=== PATIENT | male | born 1945 | race Caucasian/White ===

== ENCOUNTER 2016-12-25 07:31 | Outpatient (CLI) | payer MEDICARE, OTHER ==
[2016-12-25 12:19] LABS: BILIRUBIN,URINE NEGATIVE (NEGATIVE); PH,URINE 5.5 PH (5.0-7.5)
[2016-12-25 12:45] LABS: WBC,URINE 0-3 /HPF (0-3)
[2016-12-25 12:54] LABS: HEMOGLOBIN A1C 0.56 g/dL
[2016-12-25 12:55] LABS: ALBUMIN/GLOBULIN RATIO 1.4 (1.0-2.2); BILIRUBIN,TOTAL 0.4 mg/dL (0.2-1.0); BUN - BLOOD UREA NITROGEN 21 mg/dL (6-20); CALCIUM 8.9 mg/dL (8.5-10.3); CARBON DIOXIDE - CO2 25 mmol/L (21-32); CHLORIDE 107 mmol/L (101-111); CHOL/HDL RATIO 3.9 (<5.0); CHOLESTEROL 195 mg/dL; CREATININE 1.1 mg/dL (0.6-1.2); GFR - MDRD 66 (>89); GLUCOSE 120 mg/dL (70-100); HDL CHOLESTEROL 50 mg/dL; LDL/HDL RATIO 2.2 (<3.6); POTASSIUM 4.1 mmol/L (3.5-5.0); SODIUM 139 mmol/L (135-145); TOTAL PROTEIN 7.3 g/dL (6.7-8.2); TRIGLYCERIDES 179 mg/dL; VLDL CHOLESTEROL 36 mg/dL
== END 2016-12-25 07:32 | disposition home or self-care (01) ==
LOC: LAB.F 07:31
PROVIDERS: ATTEND Family Medicine
DX: M10.9 Gout, unspecified (principal); R73.01 Impaired fasting glucose; E78.5 Hyperlipidemia, unspecified; I10 Essential (primary) hypertension
CPT/HCPCS: 36415; 80053; 80061; 81001; 83036; 84550

== ENCOUNTER 2017-01-10 08:02 | Outpatient (CLI) | payer MEDICARE, OTHER | END 2017-01-10 08:03 | disposition home or self-care (01) | LOC: DI 08:02 | PROVIDERS: ATTEND Family Medicine | DX: I35.0 Nonrheumatic aortic (valve) stenosis (principal) | CPT/HCPCS: 93306 ==

== ENCOUNTER 2017-08-30 07:37 | Outpatient (CLI) | payer MEDICARE, OTHER ==
[2017-08-30 10:25] LABS: BILIRUBIN,URINE NEGATIVE (NEGATIVE); GLUCOSE, URINE (UA) NEGATIVE (NEGATIVE); KETONES,URINE (UA) NEGATIVE (NEGATIVE); LEUKOCYTE ESTERASE, URINE NEGATIVE (NEGATIVE); NITRITE,URINE NEGATIVE (NEGATIVE); OCCULT BLOOD,URINE NEGATIVE (NEGATIVE); PROTEIN,URINE NEGATIVE (NEGATIVE); UROBILINOGEN,URINE 0.2 (NORMAL) E.U./dL (NORMAL)
[2017-08-30 10:29] LABS: BACTERIA,URINE None Seen /HPF (None Seen); CLARITY,URINE CLEAR (CLEAR); RBC,URINE 0-5 /HPF (0-5); SQUAMOUS EPITHELIAL CELL,UR RARE Squamous (<= Few)
[2017-08-30 10:43] LABS: ALBUMIN 4.8 g/dL (3.2-5.5); ALBUMIN/GLOBULIN RATIO 1.6 (1.0-2.2); ALKALINE PHOSPHATASE 45 IU/L (42-121); ALT ALANINE AMINOTRANSFERASE 39 IU/L (10-60); AST ASPARTATE AMINOTRANSFERASE 31 IU/L (10-42); BILIRUBIN,TOTAL 0.8 mg/dL (0.2-1.0); BUN - BLOOD UREA NITROGEN 19 mg/dL (6-20); CALCIUM 9.2 mg/dL (8.5-10.3); CARBON DIOXIDE - CO2 26 mmol/L (21-32); CHLORIDE 102 mmol/L (101-111); CHOLESTEROL 201 mg/dL; CREATININE 1.1 mg/dL (0.6-1.2); GFR - MDRD 66 (>89); GLUCOSE 114 mg/dL (70-100); HDL CHOLESTEROL 53 mg/dL; LDL CHOLESTEROL,CALCULATED 119 mg/dL; SODIUM 138 mmol/L (135-145); TOTAL PROTEIN 7.8 g/dL (6.7-8.2); URIC ACID 6.9 mg/dL (2.6-7.2); VLDL CHOLESTEROL 29 mg/dL
[2017-08-30 10:44] LABS: CHOL/HDL RATIO 3.8 (<5.0); LDL/HDL RATIO 2.2 (<3.6)
[2017-08-30 10:58] LABS: HB2 TOTAL 16.1 g/dL; HEMOGLOBIN A1C 0.65 g/dL; HEMOGLOBIN A1C % 5.8 % (4.6-6.2)
== END 2017-08-30 07:38 | disposition home or self-care (01) ==
LOC: LAB.F 07:37
PROVIDERS: ATTEND Family Medicine
DX: M10.9 Gout, unspecified (principal); R73.01 Impaired fasting glucose; I10 Essential (primary) hypertension; E78.5 Hyperlipidemia, unspecified
CPT/HCPCS: 36415; 80053; 80061; 81001; 83036; 83721; 84550

== ENCOUNTER 2018-01-13 16:43 | Emergency (ER) | payer MEDICARE, OTHER ==
[2018-01-13 16:49] VITALS: BP 130/78
[2018-01-13] MEDS ORDERED: TETANUS/DIPHTHERIA/PERTUSSIS 0.5 ML SYRINGE IM ONE (16:49)
[2018-01-13] MEDS ORDERED: BUFFERED LIDOCAINE 10 ML SYRINGE ONE (16:53)
--- NOTE | 2018-01-13 17:09 | ED Physician Documentation ---
PD HPI UPPER EXT INJURY - Stated complaint Stated Complaint: AVE VS LT HAND - Chief complaint Chief Complaint: Ext Problem - History obtained from History obtained from: Patient, Family - History of Present Illness Location: Left (Right-handed gentleman who is not up-to-date on tetanus accidentally contacted his left hand while splitting wood with a mall at home just prior to arrival.) Review of Systems Constitutional: reports: Reviewed and negative Throat: reports: Reviewed and negative Cardiac: reports: Reviewed and negative Respiratory: reports: Reviewed and negative PD PAST MEDICAL HISTORY - Past Medical History Past Medical History: No - Past Surgical History Past Surgical History: No - Present Medications Home Medications: Ambulatory Orders Medication Instructions Recorded Confirmed Atenolol mg PO 01/13/18 Finasteride mg PO 01/13/18 Lisinopril 01/13/18 Omeprazole 20 mg PO 01/13/18 Simvastatin mg PO 01/13/18 metFORMIN [Glucophage] mg PO ONCE 01/13/18 - Allergies Allergies/Adverse Reactions: Allergies Allergy/AdvReac Type Severity Reaction Status Date / Time No Known Drug Allergies Allergy Verified 01/13/18 16:49 - Social History Does the pt smoke?: No Smoking Status: Never smoker Does the pt drink ETOH?: No Does the pt have substance abuse?: No - Immunizations Immunizations are current?: No Immunizations: TDAP >10years/unknown - POLST Patient has POLST: No PD ED PE NORMAL - Vitals Vital signs reviewed: Yes - General General: Alert and oriented X 3, No acute distress - Extremities Extremities: Other (On the left hand on the radial side of the dorsal webspace at the level of the second MCP on the radial side he has a 2-1/2 cm jagged shallow laceration without distal neurovascular compromise.) - Neuro Neuro: Alert and oriented X 3, Normal speech - Psych Psych: Normal mood, Normal affect Results - Vitals Vitals: Vital Signs - 24 hr 01/13/18 16:47 Temperature 35.8 C L Heart Rate 68 Respiratory 18 Rate Blood Pressure 130/78 O2 Saturation 95 Procedures - Laceration (location) L hand Length in cm: 2.8 Wound type: Curved, Irregular, Superficial, Into subcut fat Neurovascular status: Sensory intact, Motor intact, Vascular intact Tendon involvement: Tendon intact Anesthesia: Lidocaine 1%, With bicarb Wound Preparation: Hibiclens, Irrigated copiously NS Skin layer closure: Nylon, Size #-0 - enter number (4-0), Sutures - enter # (7) Other: Tetanus booster given Complexity: Simple PD MEDICAL DECISION MAKING - Sepsis Event Vital Signs: Vital Signs - 24 hr 01/13/18 16:47 Temperature 35.8 C L Heart Rate 68 Respiratory 18 Rate Blood Pressure 130/78 O2 Saturation 95 Departure - Departure Disposition: 01 Home, Self Care Clinical Impression: Hand laceration Qualifiers: Encounter type: initial encounter Foreign body presence: without foreign body Laterality: left Qualified Code(s): S61.412A - Laceration without foreign body of left hand, initial encounter Condition: Good Record reviewed to determine appropriate education?: Yes Instructions: ED Laceration Hand Comments: The stitches need to come out in about 2 weeks, call your doctor to arrange. You can wash with soap and water briefly. Otherwise keep it clean and covered.
--- NOTE | 2018-01-13 18:05 | XRAY Report ---
Procedure Date: 01/13/2018 Accession Number: [id number] / [id number] Procedure: XR - Hand 3 View LT CPT Code: FULL RESULT: EXAM: LEFT HAND RADIOGRAPHY EXAM DATE: 01/13/2018 05:53 PM. CLINICAL HISTORY: Left hand laceration near second metacarpal head. COMPARISON: None. TECHNIQUE: 3 views. FINDINGS: Bones: The third distal phalangeal tuft is partially excluded from the frontal view. Focal cortical irregularity along the dorsal aspect of the metacarpal heads on the lateral view. Joints: Normal alignment. Soft Tissues: Mild swelling dorsal to the metacarpal heads on the lateral view. No radiopaque or radiographically evident radiolucent foreign body. IMPRESSION: Focal cortical irregularity along the dorsal aspect of the metacarpal heads on the lateral view, suspicious for subtle impaction fracture, unable to determine which digit with certainty. An oblique view including only the dorsal aspect of the second ray would be useful for better localization. [facility]IA
== END 2018-01-13 18:09 | disposition home or self-care (01) ==
LOC: ED 16:43
DX: S61.412A Laceration without foreign body of left hand, initial encounter (principal); W27.0XXA Contact with workbench tool, initial encounter; Y93.89 Activity, other specified; Z23 Encounter for immunization
CPT/HCPCS: 12002; 90471; 99281; 99282

== ENCOUNTER 2019-02-03 16:44 | Emergency (ER) | payer MEDICARE, OTHER ==
--- NOTE | 2019-02-03 17:21 | ED Physician Documentation ---
PD HPI UPPER EXT INJURY - Stated complaint Stated Complaint: L HAND LAC - Chief complaint Chief Complaint: Laceration - History obtained from History obtained from: Patient - History of Present Illness Location: Left, Hand Type of injury: Fall (He states he fell on uneven stepping and landed catching himself with his hands. He denies landing on sharp object but had a extension of the finger with a laceration at the flexion crease. He has normal sensation and movement of the finger. Laceration is large enough use conservative would not stay closed without sutures.) Timing - onset: Today Timing - details: Abrupt onset, Still present Improved by: Rest Worsened by: Moving, Palpating Associated symptoms: No: Weakness, Numbness Similar symptoms before: Has not had sx before Review of Systems Cardiac: denies: Chest pain / pressure GI: denies: Abdominal Pain Skin: reports: Laceration (s). denies: Abrasion (s) Neurologic: denies: Focal weakness, Numbness, Head injury PD PAST MEDICAL HISTORY - Past Medical History Cardiovascular: Hypertension, High cholesterol Endocrine/Autoimmune: Type 2 diabetes : Benign prostate hypertrophy - Past Surgical History Past Surgical History: No - Present Medications Home Medications: Ambulatory Orders Medication Instructions Recorded Confirmed RX: Atenolol mg PO 01/13/18 RX: Finasteride mg PO 01/13/18 RX: Lisinopril 01/13/18 RX: Omeprazole 20 mg PO 01/13/18 RX: Simvastatin mg PO 01/13/18 metFORMIN [Glucophage] mg PO ONCE 01/13/18 - Allergies Allergies/Adverse Reactions: Allergies Allergy/AdvReac Type Severity Reaction Status Date / Time No Known Drug Allergies Allergy Verified 02/03/19 16:50 - Social History Does the pt smoke?: No Smoking Status: Never smoker Does the pt drink ETOH?: No Does the pt have substance abuse?: No - Immunizations Immunizations are current?: No Immunizations: TDAP >10years/unknown - POLST Patient has POLST: No PD ED PE NORMAL - Vitals Vital signs reviewed: Yes - General General: Alert and oriented X 3, No acute distress, Well developed/nourished - Derm Derm: Normal color, Warm and dry - Extremities Extremities: Other (Left little finger at the MCP flexion crease has a horizontally oriented laceration across the finger from side to side. It exten ds to the fatty tissue. There is no deep structures involved. He has a good flexion at both IP joints against resistance. There is normal sensation color and capillary refill at the tip. There are no foreign bodies noted.) - Neuro Neuro: No motor deficit, No sensory deficit Results - Vitals Vitals: Vital Signs - 24 hr 02/03/19 02/03/19 16:48 18:06 Temperature 36 C L Heart Rate 70 70 Respiratory 18 16 Rate Blood Pressure 138/71 H 126/62 O2 Saturation 98 96 Oxygen O2 Source Room air Procedures - Laceration (location) left little finger Length in cm: 2 Wound type: Irregular, Into subcut fat, Clean Neurovascular status: Sensory intact, Motor intact, Vascular intact Tendon involvement: Tendon intact Anesthesia: Lidocaine 2% Wound Preparation: Irrigated copiously NS, Wound explored, To the base. No: FB identified Skin layer closure: Nylon, Running, Size #-0 - enter number (4), Sutures - enter # (8) Other: Patient tolerated well, No complications, Dressing applied, Tetanus UTD Complexity: Simple PD MEDICAL DECISION MAKING - ED course Complexity details: considered differential, d/w patient Departure - Departure Disposition: 01 Home, Self Care Clinical Impression: Fall from slip, trip, or stumble Qualifiers: Encounter type: initial encounter Qualified Code(s): W01.0XXA - Fall on same level from slipping, tripping and stumbling without subsequent striking against object, initial encounter Laceration of little finger Qualifiers: Encounter type: initial encounter Damage to nail status: without damage Foreign body presence: without foreign body Laterality: left Qualified Code(s): S61.217A - Laceration without foreign body of left little finger without damage to nail, initial encounter Condition: Stable Record reviewed to determine appropriate education?: Yes Instructions: ED Laceration Hand Follow-Up: SHENG PIMENTEL MD [Primary Care Provider] - Comments: It is okay to wash and shower. Clean off the wound twice a day with soap and water, or peroxide and water. Apply some antibiotic ointment to it to keep it moist. Also to watch for signs of infection such as purulence, redness or increasing pain. Return to your primary care or the ER at the specified time for suture removal. Suture removal 10 days. Tylenol or ibuprofen as needed for pains. Gentle use of the hand is good to stretch out the wound as its healing. Try not to be overly useful with the hand as the stitches are in place with the early healing. Discharge Date/Time: 02/03/19 18:06
[2019-02-03] MEDS ORDERED: ACETAMINOPHEN 325 MG TABLET PO STA (17:42)
[2019-02-03] MEDS ORDERED: BACITRACIN OINT TOP ONE (17:58)
[2019-02-03 18:07] VITALS: BP 126/62
== END 2019-02-03 18:06 | disposition home or self-care (01) ==
LOC: ED 16:44
DX: S61.217A Laceration without foreign body of left little finger without damage to nail, initial encounter (principal); W10.1XXA Fall (on)(from) sidewalk curb, initial encounter; Y92.480 Sidewalk as the place of occurrence of the external cause; I10 Essential (primary) hypertension; E11.9 Type 2 diabetes mellitus without complications; Z79.84 Long term (current) use of oral hypoglycemic drugs
CPT/HCPCS: 12001; 99282; A9270